=== PATIENT | female | born 1945 | race African-American/Black ===

== ENCOUNTER 2021-02-27 20:52 | Emergency (ER) | payer MEDICARE, MEDICAID ==
[~2021-02-27] VITALS: Ht 162.6 cm; Wt 117.0 kg
[~2021-02-27 20:52] MED LIST: AMLO10TA80 PO; ASPI-1497 PO; BENA20TA10 PO; GLUC-230 PO; HYDR12.529 PO; OMEP20CA14 PO; PRAV40TA58 PO; PUMP300C PO; [UNRECOGNIZED DRUG - CODE] PO
[2021-02-27] MEDS ORDERED: ONDANSETRON HCL 4MG/2ML INJ IV STA (22:38)
[2021-02-27] MEDS ORDERED: MAGNESIUM/ALUMINUM HYDROXIDE/SIMETHICONE 30ML UDC PO STA (22:38)
[2021-02-27] MEDS ORDERED: VISCOUS LIDOCAINE 2% 15 ML UDC PO STA (22:38)
[2021-02-27 23:02] LABS: BASOPHILS % 1.3 % (0.0-2.0); EOSINOPHILS % 0.4 % (0.0-5.0); HEMATOCRIT. 37.8 % (36.0-48.0); HEMOGLOBIN. 12.3 g/dL (12.0-16.0); LYMPHOCYTES % 35.7 % (20.0-50.0); MEAN CORPUSCULAR HEMOGLOBIN 28.8 pg (28.0-32.0); MEAN CORPUSCULAR VOLUME 88.2 fL (81.0-99.0); MEAN PLATELET VOLUME 9.9 fl (7.4-10.4); MONOCYTES % 7.8 % (2.0-8.0); NEUTROPHILS % 54.8 % (40.0-76.0); PLATELET 200 x1000/uL (130-400); RED BLOOD CELL COUNT 4.29 mill/uL (4.2-5.4); RED CELL DISTRIBUTION WIDTH 15.8 % (11.6-14.6)
[2021-02-27 23:06] LABS: CHLORIDE 109 mEq/L (98-107)
[2021-02-27 23:10] LABS: ETHANOL BLOOD < 10 mg/dL
[2021-02-27 23:43] LABS: CLARITY URINE CLEAR (CLEAR); COLOR URINE YELLOW (YELLOW); KETONES URINE NEGATIVE (NEGATIVE); LEUKOCYTE ESTERASE URINE TRACE (NEGATIVE); NITRITE URINE NEGATIVE (NEGATIVE); OCCULT BLOOD URINE NEGATIVE (NEGATIVE); PROTEIN URINE NEGATIVE (NEGATIVE)
[2021-02-27 23:54] LABS: *AMPHETAMINES SCREEN URINE NEGATIVE (NEGATIVE); *BARBITURATES SCREEN URINE NEGATIVE (NEGATIVE); CANNABINOID URINE SCREEN NEGATIVE (NEGATIVE); METHADONE URINE SCREEN NEGATIVE (NEGATIVE); OPIATES URINE SCREEN NEGATIVE (NEGATIVE); PHENCYCLIDINE URINE SCREEN NEGATIVE (NEGATIVE)
[2021-02-27 23:55] LABS: *BENZODIAZEPINES SCREEN URINE NEGATIVE (NEGATIVE); *COCAINE SCREEN URINE NEGATIVE (NEGATIVE)
[2021-02-28] MEDS ORDERED: ONDA4TAB5 MT (00:58)
[2021-02-28] MEDS ORDERED: MAG355OR21 MT (00:58)
[2021-02-28 07:20] VITALS: BP 130/72
== END 2021-02-28 07:22 | disposition home or self-care (01) ==
LOC: ER 20:52
DX: R10.13 Epigastric pain (principal); R11.2 Nausea with vomiting, unspecified; E78.00 Pure hypercholesterolemia, unspecified; I10 Essential (primary) hypertension; Z86.73 Personal history of transient ischemic attack (TIA), and cerebral infarction without residual deficits; Z79.899 Other long term (current) drug therapy
CPT/HCPCS: 36415; 74176; 80053; 80305; 80320; 81003; 83690; 85025; 85610; 96374; 99285; J2405; G0480

== ENCOUNTER 2021-05-20 15:21 | Emergency (ER) | payer MEDICARE, MEDICAID ==
[~2021-05-20] VITALS: Ht 167.6 cm; Wt 78.0 kg
[~2021-05-20 15:21] MED LIST changes: +MAG355OR21 MT; +ONDA4TAB5 MT
[2021-05-20 16:41] LABS: BASOPHILS % 1.8 % (0.0-2.0); EOSINOPHILS % 0.7 % (0.0-5.0); HEMATOCRIT. 37.2 % (36.0-48.0); HEMOGLOBIN. 12.2 g/dL (12.0-16.0); LYMPHOCYTES % 33.4 % (20.0-50.0); MEAN CORPUSCULAR HEMOGLOBIN 29.1 pg (28.0-32.0); MEAN CORPUSCULAR VOLUME 88.8 fL (81.0-99.0); MEAN PLATELET VOLUME 11.2 fl (7.4-10.4); MONOCYTES % 7.6 % (2.0-8.0); NEUTROPHILS % 56.5 % (40.0-76.0); PLATELET 194 x1000/uL (130-400); RED BLOOD CELL COUNT 4.19 mill/uL (4.2-5.4); RED CELL DISTRIBUTION WIDTH 16.1 % (11.6-14.6)
[2021-05-20 16:46] LABS: CHLORIDE 109 mEq/L (98-107)
[2021-05-20 16:50] LABS: ETHANOL BLOOD < 10 mg/dL
[2021-05-20] MEDS ORDERED: IOHEXOL-350 100 ML BOTTLE ONE (18:24)
[2021-05-20] MEDS ORDERED: ASPIRIN 325MG EC TABLET PO ONE (19:15)
[2021-05-20] MEDS ORDERED: CLOPIDOGREL 75MG TABLET PO ONE (19:15)
[2021-05-20 21:01] VITALS: BP 152/86
== END 2021-05-20 21:32 | disposition short-term general hospital (02) ==
LOC: ER 15:21
DX: I66.21 Occlusion and stenosis of right posterior cerebral artery (principal); I65.1 Occlusion and stenosis of basilar artery; I10 Essential (primary) hypertension; I49.3 Ventricular premature depolarization; Z20.822 Contact with and (suspected) exposure to COVID-19; E78.00 Pure hypercholesterolemia, unspecified; J44.9 Chronic obstructive pulmonary disease, unspecified
CPT/HCPCS: 36415; 70450; 70496; 70498; 71045; 80053; 80320; 84484; 85025; 87426; 93005; 99291; G0480; Q9967

== ENCOUNTER 2023-07-03 09:32 | Emergency (ER) | payer MEDICAID, MEDICARE ==
[~2023-07-03] VITALS: Ht 152.4 cm; Wt 99.0 kg
[~2023-07-03 09:32] MED LIST changes: +BENA-8 PO; -BENA20TA10 PO
[2023-07-03 09:37] VITALS: O2SAT 98
[2023-07-03] MEDS ORDERED: IBUPROFEN 600MG TABLET PO ONE (11:15)
[2023-07-03] MEDS ORDERED: IBUP-2029 MT (11:59)
[2023-07-03 15:21] VITALS: BP 144/86; PULSE 81; RESP 16; TEMP 97.8
== END 2023-07-03 15:21 | disposition home or self-care (01) ==
LOC: ER 09:32
DX: S83.92XA Sprain of unspecified site of left knee, initial encounter (principal); I10 Essential (primary) hypertension; E78.00 Pure hypercholesterolemia, unspecified; J44.1 Chronic obstructive pulmonary disease with (acute) exacerbation; I48.91 Unspecified atrial fibrillation; Z79.899 Other long term (current) drug therapy; Z86.73 Personal history of transient ischemic attack (TIA), and cerebral infarction without residual deficits; W18.30XA Fall on same level, unspecified, initial encounter; Y93.89 Activity, other specified; Y92.89 Other specified places as the place of occurrence of the external cause; Y99.8 Other external cause status
CPT/HCPCS: 73560; 99283

== ENCOUNTER 2024-03-17 22:05 | Inpatient (IN) | payer MEDICARE, OTHER ==
[~2024-03-17] VITALS: Ht 152.4 cm; Wt 92.5 kg
[~2024-03-17 22:05] MED LIST changes: +IBUP-2029 MT
[2024-03-18] MEDS: HYDRALAZINE 20MG/ML VIAL IV ONE (00:30)
[2024-03-18 00:49] LABS: BASOPHILS % 0.8 % (0.0-2.0); EOSINOPHILS % 0.4 % (0.0-5.0); HEMATOCRIT. 37.1 % (36.0-48.0); HEMOGLOBIN. 11.9 g/dL (12.0-16.0); LYMPHOCYTES % 15.1 % (20.0-50.0); MEAN CORPUSCULAR HEMOGLOBIN 29.4 pg (28.0-32.0); MEAN CORPUSCULAR VOLUME 91.8 fL (81.0-99.0); MEAN PLATELET VOLUME 10.9 fl (7.4-10.4); MONOCYTES % 7.9 % (2.0-8.0); NEUTROPHILS % 75.8 % (40.0-76.0); PLATELET 144 x1000/uL (130-400); RED BLOOD CELL COUNT 4.04 mill/uL (4.2-5.4); RED CELL DISTRIBUTION WIDTH 16.3 % (11.6-14.6); WHITE BLOOD COUNT 6.7 x1000/uL (4.5-11.0)
[2024-03-18 00:56] LABS: CHLORIDE 108 mEq/L (98-107); POTASSIUM 3.8 mEq/L (3.5-5.1); SODIUM 142 mEq/L (136-145)
[2024-03-18 00:57] LABS: CALCIUM 9.2 mg/dL (8.7-10.4); CARBON DIOXIDE 31 mEq/L (21-32)
[2024-03-18 01:02] LABS: GLUCOSE 92 mg/dL (70-105); UREA NITROGEN BLOOD 24 mg/dL (9-23)
[2024-03-18 01:03] LABS: TROPONIN I HIGH SENSITIVITY 10 ng/L (3.0-34)
[2024-03-18 01:46] LABS: PARTIAL THROMBOPLASTIN TIME 26.5 sec (23.4-31.0); PROTHROMBIN TIME 11.2 sec (9.6-11.0)
[2024-03-18] MEDS: FUROSEMIDE 20MG/2ML VIAL IVP ONE (02:18)
[2024-03-18] MEDS ORDERED: IPRATROPIUM/ALBUTEROL 0.5-3(2.5)MG/3ML NEB HHN PRN (03:00)
[2024-03-18] MEDS ORDERED: ONDANSETRON HCL 4MG/2ML INJ IV PRN (03:00)
[2024-03-18] MEDS ORDERED: MAGNESIUM/ALUMINUM HYDROXIDE/SIMETHICONE 30ML UDC PO PRN (03:00)
[2024-03-18] MEDS ORDERED: DOCUSATE SODIUM 100MG CAPSULE PO PRN (03:00)
[2024-03-18] MEDS ORDERED: ACETAMINOPHEN 325MG TABLET PO PRN (03:00)
[2024-03-18] MEDS ORDERED: GUAIFENESIN 200MG/10ML SUGAR FREE UDC PO PRN (03:00)
[2024-03-18] MEDS ORDERED: NA PHOS,M-B/NA PHOS,DI-BA ENEMA 118ML PR PRN (03:00)
[2024-03-18 04:09] LABS: BASOPHILS % 1.3 % (0.0-2.0); EOSINOPHILS % 0.5 % (0.0-5.0); HEMOGLOBIN. 11.9 g/dL (12.0-16.0); LYMPHOCYTES % 18.1 % (20.0-50.0); MEAN CORPUSCULAR HEMOGLOBIN 29.4 pg (28.0-32.0); MEAN CORPUSCULAR VOLUME 89.1 fL (81.0-99.0); MEAN PLATELET VOLUME 10.4 fl (7.4-10.4); MONOCYTES % 8.5 % (2.0-8.0); NEUTROPHILS % 71.6 % (40.0-76.0); PLATELET 147 x1000/uL (130-400); RED BLOOD CELL COUNT 4.05 mill/uL (4.2-5.4); WHITE BLOOD COUNT 7.8 x1000/uL (4.5-11.0)
[2024-03-18 04:23] LABS: CALCIUM 9.1 mg/dL (8.7-10.4); CARBON DIOXIDE 29 mEq/L (21-32); CHLORIDE 107 mEq/L (98-107); POTASSIUM 3.3 mEq/L (3.5-5.1); SODIUM 140 mEq/L (136-145)
[2024-03-18 04:27] LABS: CREATININE 0.9 mg/dL (0.6-1.0); GLUCOSE 96 mg/dL (70-105)
[2024-03-18 04:28] LABS: LDL CHOLESTEROL 122 mg/dL (5-100); TRIGLYCERIDE 81 mg/dL (0-150); TROPONIN I HIGH SENSITIVITY 13 ng/L (3.0-34); UREA NITROGEN BLOOD 21 mg/dL (9-23)
[2024-03-18 04:29] LABS: ALANINE AMINOTRANSFERASE < 7 IU/L (10-49); ALBUMIN 3.7 g/dL (3.2-4.8); ASPARTATE AMINOTRANSFERASE 12 IU/L (<34); BILIRUBIN DIRECT 0.1 mg/dL (<=3.0); CHOLESTEROL 215 mg/dL (<200); HDL CHOLESTEROL 71 mg/dL (>65); PHOSPHORUS 3.3 mg/dL (2.5-4.9)
[2024-03-18 04:30] LABS: PROTEIN TOTAL 6.7 g/dL (6.0-8.3); T4 FREE 1.15 ng/dL (0.89-1.76)
[2024-03-18 04:31] LABS: BILIRUBIN TOTAL 0.4 mg/dL (0.1-1.0)
[2024-03-18] MEDS: CLONIDINE 0.1MG TABLET PO PRN (05:30)
[2024-03-18] MEDS: METOPROLOL TARTRATE 25MG TABLET PO NR (05:35)
[2024-03-18] MEDS ORDERED: POTASSIUM CHLORIDE 40 MEQ in DEXT 5% WATER 230 ML IV ONE (08:00)
[2024-03-18] MEDS ORDERED: FURO20TA4 PO (08:35)
[2024-03-18] MEDS ORDERED: LOSA1TAB34 PO (08:35)
[2024-03-18] MEDS ORDERED: HYDR-2988 PO (08:35)
[2024-03-18] MEDS: HYDRALAZINE HCL 10MG TABLET PO SCH (09:00)
[2024-03-18] MEDS: METOPROLOL TARTRATE 25MG TABLET PO SCH (09:00)
[2024-03-18] MEDS: AMLODIPINE 10MG TABLET PO SCH (09:00)
[2024-03-18] MEDS: ASPIRIN 81MG TABLET PO SCH (09:00)
[2024-03-18] MEDS: PANTOPRAZOLE SODIUM 40 MG/VIAL IV SCH (09:26)
[2024-03-18] MEDS: FUROSEMIDE 20MG/2ML VIAL IVP SCH (09:29)
[2024-03-18] MEDS: MAGNESIUM 2 G PREMIX 50 ML IV NR (09:33)
[2024-03-18] MEDS: ENOXAPARIN 80MG/0.8ML SYR SUBCUT SCH (09:41)
[2024-03-18] MEDS: KCL 20MEQ/100ML X 2 FOR TOTAL KCL 40MEQ/200ML IV SCH (09:48)
[2024-03-18 16:00] VITALS: BP 179/81; PULSE 62; RESP 20; TEMP 36.44736; O2SAT 98
[2024-03-18] MEDS ORDERED: HYDROCHLOROTHIAZIDE 12.5MG CAPSULE PO SCH (16:15)
[2024-03-18] MEDS ORDERED: BENAZEPRIL 10MG TABLET PO SCH (16:15)
[2024-03-18 16:29] VITALS: BP 179/81; PULSE 62; RESP 18; TEMP 36.5292
[2024-03-18] MEDS ORDERED: LISINOPRIL 20MG TABLET PO SCH (16:30)
[2024-03-18] MEDS: HYDRALAZINE HCL 25MG TABLET PO SCH (16:52)
[2024-03-18] MEDS: LISINOPRIL 20MG TABLET PO SCH (16:53)
[2024-03-18] MEDS: PNEUMOCOCCAL 23-VAL P-SAC VAC 0.5ML IM ONE (17:00)
[2024-03-18 19:03] LABS: CLARITY URINE CLEAR (CLEAR); COLOR URINE YELLOW (YELLOW); GLUCOSE URINE NEGATIVE (NEGATIVE); KETONES URINE NEGATIVE (NEGATIVE); LEUKOCYTE ESTERASE URINE NEGATIVE (NEGATIVE); NITRITE URINE NEGATIVE (NEGATIVE); OCCULT BLOOD URINE NEGATIVE (NEGATIVE); PH URINE 5.5 (4.5-8.0); PROTEIN URINE NEGATIVE (NEGATIVE); UROBILINOGEN URINE 0.2 E.U./dL (0.2-1.0)
[2024-03-18 19:26] LABS: *AMPHETAMINES SCREEN URINE NEGATIVE (NEGATIVE); *BARBITURATES SCREEN URINE NEGATIVE (NEGATIVE); *BENZODIAZEPINES SCREEN URINE NEGATIVE (NEGATIVE); *COCAINE SCREEN URINE NEGATIVE (NEGATIVE); CANNABINOID URINE SCREEN NEGATIVE (NEGATIVE); ECSTASY MDMA SCREEN URINE NEGATIVE (NEGATIVE); METHADONE URINE SCREEN NEGATIVE (NEGATIVE); OPIATES URINE SCREEN NEGATIVE (NEGATIVE); PHENCYCLIDINE URINE SCREEN NEGATIVE (NEGATIVE)
[2024-03-18 20:00] VITALS: BP 147/73; PULSE 87; RESP 20; TEMP 36.50292; O2SAT 98
[2024-03-18] MEDS: ATORVASTATIN CALCIUM 40MG TABLET PO SCH (21:37)
[2024-03-18] MEDS: OXYBUTYNIN CHLORIDE 5MG TABLET PO SCH (21:37)
[2024-03-19] VITALS: BP 164/88; PULSE 77; RESP 20; TEMP 36.16956; O2SAT 97
[2024-03-19 04:00] VITALS: BP 124/75; PULSE 66; RESP 20; TEMP 36.6696; O2SAT 97
[2024-03-19 08:00] VITALS: BP 122/74; PULSE 70; RESP 20; TEMP 37.11408; O2SAT 93
[2024-03-19 12:00] VITALS: BP 116/50; PULSE 62; RESP 18; TEMP 36.50292; O2SAT 97
[2024-03-19 16:00] VITALS: BP 110/53; PULSE 60; RESP 20; TEMP 36.6696; O2SAT 97
[2024-03-19 20:00] VITALS: BP 110/57; PULSE 62; RESP 18; TEMP 36.61404; O2SAT 96
[2024-03-20] VITALS: BP 111/68; PULSE 61; RESP 19; TEMP 36.72516; O2SAT 97
[2024-03-20 04:00] VITALS: BP 110/61; PULSE 65; RESP 18; TEMP 36.61404; O2SAT 98
[2024-03-20 08:00] VITALS: BP 124/59; PULSE 69; RESP 19; TEMP 36.50292; O2SAT 95
[2024-03-20] MEDS: ENOXAPARIN 100MG/ML SYR SUBCUT SCH (09:48)
[2024-03-20] MEDS: FAMOTIDINE 20MG/2ML VIAL IV SCH (09:49)
[2024-03-20] MEDS: POTASSIUM CHLORIDE 20MEQ TABLET SR PO NR (10:10)
[2024-03-20] MEDS ORDERED: METO-396 PO (11:36)
[2024-03-20 12:00] VITALS: BP 118/55; PULSE 62; RESP 20; TEMP 36.114; O2SAT 96
[2024-03-20] MEDS: MAGNESIUM 2 G PREMIX 50 ML IV NR (15:18)
[2024-03-20 16:00] VITALS: BP 131/67; PULSE 64; RESP 19; TEMP 36.33624; O2SAT 96
[2024-03-20 20:00] VITALS: BP 116/71; PULSE 106; RESP 20; TEMP 36.61404; O2SAT 99
[2024-03-20] MEDS ORDERED: HYDRALAZINE HCL 25MG TABLET PO SCH (21:00)
[2024-03-21] VITALS: BP 112/79; PULSE 97; RESP 18; TEMP 36.3918; O2SAT 96
[2024-03-21 04:00] VITALS: BP 127/71; PULSE 95; RESP 18; TEMP 36.50292; O2SAT 96
[2024-03-21 08:00] VITALS: BP 121/71; PULSE 96; RESP 18; TEMP 36.50292; O2SAT 95
[2024-03-21] MEDS ORDERED: AMLODIPINE 10MG TABLET PO SCH (09:00)
[2024-03-21] MEDS ORDERED: LISINOPRIL 20MG TABLET PO SCH (09:00)
[2024-03-21] MEDS: ACETAMINOPHEN 325MG TABLET PO PRN (10:03)
[2024-03-21] MEDS: METOPROLOL SUCCINATE 25MG ER TABLET PO SCH (10:03)
[2024-03-21] MEDS: LISINOPRIL 20MG TABLET PO SCH (10:03)
[2024-03-21] MEDS: FUROSEMIDE 20MG TABLET PO SCH (10:03)
[2024-03-21 12:00] VITALS: BP_SYST 108; BP_DIAS 69; BP_DIAS 79; PULSE 65; PULSE 73; RESP 18; TEMP 36.50292; TEMP 36.61404; O2SAT 100; O2SAT 98
[2024-03-21] MEDS ORDERED: OXYB5TAB21 PO (14:23)
[2024-03-21] MEDS ORDERED: FURO20TA4 PO (14:23)
[2024-03-21] MEDS ORDERED: ASPI-1160 PO (14:23)
[2024-03-21] MEDS ORDERED: LISI20TA31 PO (14:23)
[2024-03-21 16:00] VITALS: BP 108/69; PULSE 65; RESP 18; TEMP 36.61404; O2SAT 100
[2024-03-21 18:20] VITALS: BP 108/69; PULSE 73; TEMP 98; O2SAT 100
== END 2024-03-21 19:00 | DRG 291 ==
LOC: ER 22:05 → EDBEDREQTM 03-18 01:34 → EDBEDREQ 03-18 01:34 → 5WST 03-18 02:57 → 7EST 03-18 15:33
PROVIDERS: ADMIT Hospitalist; ATTEND Hospitalist
DX: I13.0 Hypertensive heart and chronic kidney disease with heart failure and stage 1 through stage 4 chronic kidney disease, or unspecified chronic kidney disease (principal); I50.43 Acute on chronic combined systolic (congestive) and diastolic (congestive) heart failure; I16.0 Hypertensive urgency; I48.91 Unspecified atrial fibrillation; J44.9 Chronic obstructive pulmonary disease, unspecified; K21.9 Gastro-esophageal reflux disease without esophagitis; I07.1 Rheumatic tricuspid insufficiency; N18.9 Chronic kidney disease, unspecified; E78.00 Pure hypercholesterolemia, unspecified; Z79.01 Long term (current) use of anticoagulants; Z86.73 Personal history of transient ischemic attack (TIA), and cerebral infarction without residual deficits; Z79.82 Long term (current) use of aspirin; Z79.899 Other long term (current) drug therapy
CPT/HCPCS: 36415; 71045; 80048; 80061; 80076; 80305; 81003; 83036; 83735; 83880; 84100; 84439; 84443; 84484; 85025; 93005; 93306; 97162; 97166; 99291; J0360; J1650; J1940; J2470; J3475; J3480; J3490